=== PATIENT | female | born 1975 | race Caucasian/White ===

== ENCOUNTER → 2019-08-08 15:50 | Outpatient (BNVA) | payer OTHER, SELFPAY | PROVIDERS: PCP Nurse Practitioner Family; Visit Provider Podiatrist Foot & Ankle Surgery | DX: S92.422A Displaced fracture of distal phalanx of left great toe, initial encounter for closed fracture (principal); X58.XXXA Exposure to other specified factors, initial encounter | CPT/HCPCS: 73620; 73630 ==

== ENCOUNTER → 2019-08-23 13:27 | Outpatient (BNVA) | payer OTHER, SELFPAY | PROVIDERS: PCP Nurse Practitioner Family; Visit Provider Podiatrist Foot & Ankle Surgery | DX: S92.422A Displaced fracture of distal phalanx of left great toe, initial encounter for closed fracture (principal); X58.XXXA Exposure to other specified factors, initial encounter | CPT/HCPCS: 73630 ==

== ENCOUNTER → 2019-11-26 10:29 | Outpatient (BNVA) | payer OTHER, SELFPAY | PROVIDERS: PCP Nurse Practitioner Family; Referring Provider Podiatrist Foot & Ankle Surgery; Visit Provider Specialist | DX: M25.569 Pain in unspecified knee (principal) | CPT/HCPCS: 73560; 73565 ==

== ENCOUNTER 2019-12-24 15:06 | Outpatient (CLI) | payer OTHER, SELFPAY ==
--- NOTE | 2019-12-24 15:10 | MR_ITS ---
WS: [id number] MRI LEFT KNEE HISTORY: internal derangement left knee COMPARISON: 11/26/2019 Anterior cruciate ligament: Small amount of increased signal in the distal ACL but no full-thickness tear. Posterior cruciate ligament: Intact. Medial collateral ligament: Intact. Posterior lateral corner structures: Intact. Medial menisci: Intact. Normal signal, size and shape. Lateral meniscus: Intact. Normal signal, size and shape. Extensor mechanism: Distal quadriceps tendon and patellar tendons are intact. Fluid and soft tissue: No joint effusion. Lobulated cystic mass posterior to the medial femoral condy le measures 2.2 x 2.0 cm. There are a few septations but predominantly increased signal on the proton density and T2 sequences. 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 Alternative diagnosis is a brandin glion. This cyst is slightly more high riding been a typical Paredes's cyst. Osseous and articular structures: Patellofemoral compartment: Mild narrowing of patellofemoral joint space. Osteochondral defects invol ve both the medial and lateral patellar facet. There is loss of cartilage over the medial patellar fa cet. Increased signal extends between the cartilage in the cortex of the bone consistent with a delam inating lesion. Medial compartment: Mild narrowing of the medial compartment with fissuring of the cartilage. Lateral compartment: Mild narrowing of the lateral compartment with fissuring of the cartilage. MR/MR knee LT wo con* [id number] IMPRESSION: 1. Lobulated complex cystic mass is probably a small Paredes's cyst. Slightly mo re superior than typically seen for Paredes's cyst and ganglion should be conside red in the differential. 2. Bilateral patellar facet chondromalacia. Mild delamination involving the me dial patellar facet cartilage defect. 3. Mild narrowing medial and lateral compartments of each knee.
== END 2019-12-24 15:07 | disposition home or self-care (01) ==
LOC: RADWPI 15:09
PROVIDERS: PCP Nurse Practitioner Family; Visit Provider Specialist
DX: M23.92 Unspecified internal derangement of left knee (principal); M25.862 Other specified joint disorders, left knee; M22.42 Chondromalacia patellae, left knee
CPT/HCPCS: 73721

== ENCOUNTER 2020-11-08 20:00 | Emergency (ER) | payer BC, SELFPAY ==
[2020-11-08 20:08] VITALS: BP 162/98; PULSE 82; RESP 18; TEMP 35.9; O2SAT 100; BMI 27.3
--- NOTE | 2020-11-08 20:24 | XRR_ITS ---
PROCEDURE INFORMATION: Exam: XR Chest Exam date and time: 11/08/2020 8:26 PM Age: 45 years old Clinical indication: Shortness of breath; Additional info: Dyspnea TECHNIQUE: Imaging protocol: XR of the chest. Views: 1 view. COMPARISON: CR Chest 2 views* [id number] 11/26/2016 4:50 PM FINDINGS: Lungs: There are bilateral increased interstitial opacities present, findings suggesting a bilateral interstitial pneumonitis. Pleural spaces: Unremarkable. No pleural effusion. No pneumothorax. Heart/Mediastinum: Unremarkable. No cardiomegaly. Bones/joints: Unremarkable. XR/XR chest 1V portable [id number] IMPRESSION: There are increased interstitial markings present bilaterally, findings suggesting a bilateral interstitial pneumonitis. COVID-19 pneumonia can have this appearance.
--- NOTE | 2020-11-08 20:25 | ECG_ITS ---
[facility] Test Date: 2020-11-08 Pat Name: Jae Vasquez Department: Room: Gender: Female [employer]: : 1975 Requested By: Kenny Edouard Order Number: [id number] Gayatri MD: Aubrie Mendes M.D. Measurements Intervals [place] Rate: 85 P: 67 GA: 136 QRS: 63 QRSD: 90 T: 57 QT: 378 QTc: 450 Interpretive Statements SINUS RHYTHM LOW QRS VOLTAGE IN PRECORDIAL LEADS [QRS DEFLECTION < 1.0 mV IN CHEST LEADS] No previous ECG available for comparison Electronically Signed On 11-09-2020 10:28:39 CDT by Aubrie Mendes M.D. [id number] f
[2020-11-08] MEDS: sodium chloride 0.9% 1,000 ML 999 ML IV (20:56)
[2020-11-08] MEDS: diphenhydrAMINE 50 mg/mL SDV 1mL IVP (20:57)
[2020-11-08] MEDS: famotidine 20 mg/2 mL INJ 40 MG IVP (20:57)
[2020-11-08 21:22] LABS: Basophils # 0.1 10^3/uL (0.0-0.1); Basophils % 1.4 %; Eosinophils # 0.2 10^3/uL (0.0-0.8); Eosinophils % 3.2 %; Hematocrit 47.6 % (37.0-47.0); Hemoglobin 15.8 g/dL (11.5-15.3); Lymphocytes # 1.1 10^3/uL (0.8-4.8); Lymphocytes % 19.5 %; Mean Corpuscular HGB Conc 33.2 g/dL (30.0-36.0); Mean Corpuscular Hemoglobin 29.9 pg (28.0-34.0); Mean Corpuscular Volume 90.2 fL (81-99); Mean Platelet Volume 11.1 fL (7.4-10.4); Monocytes # 0.7 10^3/uL (0.2-0.9); Monocytes % 12.9 %; Neutrophils # 3.56 10^3/uL (1.8-7.7); Neutrophils % 62.6 %; Nucleated Red Blood Cells % 0 %; Platelet Count 273 10^3/cmm (130-400); Red Blood Count 5.28 10^6/uL (4.1-5.3); Red Cell Distribution Width 11.7 % (12.1-15.1); White Blood Count 5.7 10^3/uL (4.0-10.0)
[2020-11-08 21:28] LABS: HCG, Serum Qual Negative (Negative)
[2020-11-08 21:34] LABS: Alanine Aminotransferase 17 U/L (0-33); Albumin Level 4.6 g/dL (3.5-5.2); Alkaline Phosphatase 58 IU/L (35-105); Anion Gap 13.9 (5-19); Aspartate Amino Transferase 12 U/L (0-32); Blood Urea Nitrogen 10 mg/dL (6-20); Calcium 9.1 mg/dL (8.5-10.5); Carbon Dioxide 24 mmol/L (22-29); Chloride 107 mmol/L (98-107); Globulin 2.6 g/dL (1.3-4.6); Glomerular Filtration Rate 89.7 mL/min (90-130); Glucose 87 mg/dL (65-115); Osmolality Calculated 290 mOsm/kg (285-295); Potassium 3.9 mmol/L (3.5-5.1); Sodium 141 mmol/L (136-145); Total Bilirubin 0.2 mg/dL (0.15-1.2); Total Protein 7.2 g/dL (6.6-8.7)
--- NOTE | 2020-11-08 21:57 | ED_ITS ---
HPI - Allergic Reaction General: Chief complaint: Allergic Reaction Stated complaint: ALLERGIC REACTION:TONGUE SWELL,CHEST TIGHT,RASH Time Seen by Provider: 11/08/20 20:14 History of Present Illness: HPI narrative: The patient is a 45-year-old female who comes to the ER complaining of tongue swelling and allergic reaction as well as tightness in her left chest. She says 1 month ago she got a allergy test which made her have a severe allergic reaction and she has been taking Benadryl on and off ever since. Today her tongue began to swell as well she developed a rash on her chest and flushing in her face. She took 2, 25 mg Benadryl tablets, Zyrtec and Pepcid as well at home today with minimal improvement of her of her symptoms. She carries with her to EpiPen's but she is afraid to use them as she had a severe allergic reaction many years ago where she coded and the last thing she remembers is them giving her epinephrine. I discussed with her generally accepted standards of using epinephrine pens or if she is short of breath or has lip and tongue swelling or throat swelling that she may use this. MD complaint: allergic reaction Associated symptoms: Reports rash and tongue swelling; Deny abdominal pain or dizziness Severity: moderate Treatment prior to arrival: benadryl and bronchodilator Review of Systems General: Reports: 10 or more systems reviewed and unremarkable except in HPI and below Const: Denies: fatigue Eyes: Denies: change in vision, blurry vision or eye redness ENMT: Reports: swelling of lips/tongue (tongue only.); Denies: throat pain, ear or mastoid pain or nasal congestion Card: Denies: chest pain, palpitations, irregular heart rhythm, edema, dyspnea on exertion or orthopnea Resp: Denies: dyspnea, productive cough or non-productive cough GI: Denies: abdominal pain, diarrhea or GI cramping : Denies: flank pain, difficulty voiding, urinary frequency or urinary urgency Musc: Denies: neck pain, back pain, extremity pain, joint pain, joint redness, limited range of motion or muscle weakness Skin/Breast: Reports: rash and erythema; Denies: pruritus, skin pain or skin tenderness Neuro: Denies: headache(s), numbness in extremities, weakness in extremities, sensory changes, difficulty walking, dizziness, confusion or Slurred speech present Psych: Denies: anxiety or depression Endo: Denies: polyuria All/Imm: Reports: tongue swelling PFSH ED PFSH: Medical History (Updated 11/08/20 @ 21:57 by Kenny Edouard MD) Fracture of left great toe Surgical History History of delivery History of tonsillectomy Family History Grandfather Diabetes Grandmother Diabetes Other Cancer Social History Smoking and tobacco status: never smoked Alcohol intake: current Alcohol intake frequency: few times a week Household members: spouse and children Marital status: Current occupational status: employed Current occupation: [employer] Physical Exam Const: COMMON NORMALS: no acute distress, average body habitus, patient oriented x3, no limitations, healthy appearing, alert and well nourished GENERAL APPEARANCE: cooperative, comfortable, well kempt and well developed ORIENTATION/CONSCIOUSNESS: Yes awake, Yes oriented to person, Yes oriented to place and Yes oriented to time HENMT: COMMON NORMALS: normocephalic, external ears normal and Normal external nose present HEAD & SCALP: normal to inspection and normocephalic NOSE: Normal external nose present EXTERNAL EAR: Yes external ears normal MOUTH: Normal oral and palatal mucosa present TEETH & GINGIVA: Yes other (mild tongue swelling) THROAT: posterior oropharynx normal Eye: COMMON NORMALS: Equal, round and reactive pupils present and EOMs intact bilaterally GENERAL EYE: appearance normal, both eyes and all related structures PUPIL: Yes Equal, round and reactive pupils present Neck/C-Spine: COMMON NORMALS: full ROM, no lymphadenopathy, no meningeal signs and no JVD GENERAL: Yes normal visual inspection Lymph: LYMPHATIC: no lymphadenopathy noted Chest: COMMONS NORMALS: normal inspection of the chest and normal palpation of entire chest wall Resp: COMMON NORMALS: normal respiratory effort, No retractions, No use of accessory muscles, clear to auscultation bilaterally and percussion normal EFFORT & INSPECTION: Yes able to speak in complete sentences AUSCULTATION: clear to auscultation bilaterally PERCUSSION: percussion normal Cardio: COMMON NORMALS: no JVD, regular rate, regular rhythm, S1 normal heart sound present, S2 normal heart sound present and Peripheral pulses 2+ throughout RATE: regular rate RHYTHM: regular rhythm HEART SOUNDS: S1 normal heart sound present and S2 normal heart sound present PERIPHERAL PULSES: Peripheral pulses 2+ throughout GI: COMMON NORMALS: Normal to inspection, nondistended, normoactive bowel sounds present, Soft to palpation, non-tender and no masses INSPECTION: Yes normal to inspection PALPATION: Yes Soft to palpation : COMMON NORMALS: Yes no CVA tenderness BLADDER/KIDNEY EXAM: Yes no CVA tenderness Back/Pelvis: COMMON NORMALS: no CVA tenderness, thoracic and lumbar spine normal to inspection, no thoracic nor lumbar tenderness and thoraco-lumbar ROM normal Extremity: COMMON NORMALS: normal to inspection, full ROM, capillary refill normal, no joint enlargement and no pedal edema GENERAL: Yes normal exam except as noted Neuro: COMMON NORMALS: patient oriented x3, CN's II-XII intact bilaterally, moves all extremities, no focal motor deficits, no sensory deficits noted and gait normal SENSORIUM/ORIENTATION: Yes alert, Yes oriented to person, Yes oriented to place and Yes oriented to time MENINGEAL SIGNS: Yes no meningeal signs Psych: COMMON NORMALS: mental status grossly normal, Normal thought process present, cooperative, normal affect and speech normal APPEARANCE: Yes well kempt ATTITUDE: Yes calm SPEECH: Yes normal speech THOUGHT PROCESS: Normal thought process present Skin: NARRATIVE SKIN EXAM: Rash on chest and face typical of allergic reaction. Course Vital Signs: Vital signs: Vital Signs Temperature 96.6 F L 11/08/20 20:08 Pulse Rate 82 11/08/20 20:08 Respiratory Rate 18 11/08/20 20:08 Blood Pressure 162/98 11/08/20 20:08 Pulse Oximetry 100 11/08/20 20:08 MDM - Allergic Reaction MDM Narrative: Medical decision making narrative: The patient came in with symptoms of an allergic reaction to unknown trigger. A month ago she had an allergy test and has been having allergic symptoms since. She took Benadryl Zyrtec and famotidine at home with mild improvement but her tongue began to swell and she came to the ER. She was given Benadryl IV, famotidine, IV fluids, Solu-Medrol. She had quick improvement and resolution of her symptoms completely. She is safe for discharge home. Recommended returning to the ER with any worsening symptoms and keep her EpiPen's handy if she has any shortness of breath related to throat, tongue, or lip swelling she should immediately use them and call 911. Visit primary care Tuesday to discuss monitor improvement of her symptoms. Return to the ER with worsening symptoms at any time. Lab Data: Labs: Lab Results 11/08/20 11/08/20 11/08/20 Range/Units 20:54 20:54 20:54 WBC 5.7 (4.0-10.0) 10^3/ uL RBC 5.28 (4.1-5.3) 10^6/u L Hgb 15.8 H (11.5-15.3) g/dL Hct 47.6 H (37.0-47.0) % MCV 90.2 (81-99) fL MCH 29.9 (28.0-34.0) pg MCHC 33.2 (30.0-36.0) g/dL RDW 11.7 L (12.1-15.1) % Plt Count 273 (130-400) 10^3/c mm MPV 11.1 H (7.4-10.4) fL Neut % (Auto) 62.6 % Lymph % (Auto) 19.5 % [place] % (Auto) 12.9 % Eos % (Auto) 3.2 % Baso % (Auto) 1.4 % Neut # (Auto) 3.56 (1.8-7.7) 10^3/u L Lymph # (Auto) 1.1 (0.8-4.8) 10^3/u L [place] # (Auto) 0.7 (0.2-0.9) 10^3/u L Eos # (Auto) 0.2 (0.0-0.8) 10^3/u L Baso # (Auto) 0.1 (0.0-0.1) 10^3/u L Nucleated RBC % (a uto) 0 % Nucleated RBCs # 0.0 /100WBC Sodium 141 (136-145) mmol/L Potassium 3.9 (3.5-5.1) mmol/L Chloride 107 (98-107) mmol/L Carbon Dioxide 24 (22-29) mmol/L Anion Gap 13.9 (5-19) BUN 10 (6-20) mg/dL Creatinine 0.7 (0.5-0.9) mg/dL GFR Calculation 89.7 L (90-130) mL/min Glucose 87 (65-115) mg/dL Calculated Osmolal ity 290 (285-295) mOsm/k g Calcium 9.1 (8.5-10.5) mg/dL Total Bilirubin 0.2 (0.15-1.2) mg/dL AST 12 (0-32) U/L ALT 17 (0-33) U/L Alkaline Phosphata se 58 (35-105) IU/L Total Protein 7.2 (6.6-8.7) g/dL Albumin 4.6 (3.5-5.2) g/dL Globulin 2.6 (1.3-4.6) g/dL HCG, Qual Negative (Negative) Discharge Plan Discharge Patient Disposition: Home Clinical Impression: Allergic reaction Condition: Stable Prescriptions: New Medrol (Gualberto) 4 mg tablets,dose pack See Rx Instructions .ROUTE .COMPLEX Qty: 21 RF: 0 Benadryl 25 mg capsule 25 mg PO Q4H PRN (Reason: allergic reaction) Qty: 30 RF: 0 No Action fluticasone propionate 50 mcg/actuation spray,suspension 1 spray INTRANASAL BID RF: 0 loratadine [Claritin] 10 mg tablet 10 mg PO QDAY RF: 0 Discharge Orders: Discharge ED (Routine); Ordered 11/08/20 Ordered By: Kenny Edouard Referrals: Alicja Patterson FNP [Primary Care Provider] - Discharge Diet: Advance as tolerated Discharge Activity: Resume usual activity Patient Instructions: Allergic Reaction, Opioid Safety Activity Restrictions/Additional Instructions: You have had an allergic reaction to an unknown allergen. Please take Benadryl every 4 hours as needed to help with your allergy symptoms and fill the steroid pack in the morning and take it as directed. You may also take the other m edications you have as you have been taking them. Use the EpiPen if you have any shortness of breath as lip and tongue and throat swelling can be severe and even deadly. Come to the hospital with any worsening symptoms. Follow-up with your primary care physician Tuesday to discuss further. 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
[2020-11-08 22:03] VITALS: BP 151/94; PULSE 67; RESP 16; O2SAT 99
== END 2020-11-08 22:05 | disposition home or self-care (01) ==
PROVIDERS: Emergency Provider Family Medicine; PCP Nurse Practitioner Family
DX: T78.40XA Allergy, unspecified, initial encounter (principal)
CPT/HCPCS: 71045; 80053; 84703; 85025; 93005; 96361; 96374; 96375; 99284; J1200; J2930; J3490; J7030

== ENCOUNTER 2022-02-04 14:53 | Outpatient (CLI) | payer BC, SELFPAY ==
--- NOTE | 2022-02-04 14:56 | MM_ITS ---
WS: [id number] BILATERAL 3D TOMOSYNTHESIS DIGITAL SCREENING MAMMOGRAPHY WITH CAD CLINICAL INFORMATION: SCREENING HISTORY: Screening mammogram. No current complaints. COMPARISON: TECHNIQUE: Bilateral CC and MLO views. FINDINGS: Scattered fibroglandular densities bilaterally. Slightly spiculated focal asymmetric density upper ou ter RIGHT breast is new from previous. Recommend further evaluation with ultrasound. LEFT breast is unremarkable. MM/[place] [id number] IMPRESSION: BI-RADS: 0-Incomplete: Need additional imaging evaluation FOLLOW UP: Need Additional Imaging Recommend RIGHT breast ultrasound directed to the upper outer RIGHT breast.
== END 2022-02-04 14:54 | disposition home or self-care (01) ==
PROVIDERS: PCP Nurse Practitioner Family; Visit Provider Nurse Practitioner Family
DX: Z12.31 Encounter for screening mammogram for malignant neoplasm of breast (principal)
CPT/HCPCS: 77063; 77067

== ENCOUNTER 2022-02-24 07:44 | Outpatient (CLI) | payer BC, SELFPAY ==
--- NOTE | 2022-02-24 07:58 | US_ITS ---
WS: [id number] ULTRASOUND BREAST RIGHT TECHNIQUE: Ultrasound right breast focused area of concern. CLINICAL INFORMATION: ABNORMAL MAMMO (US ONLY) COMPARISON: Mammogram February 04, 2022 FINDINGS: Ultrasound RIGHT breast at the 9 to 12:00 position. Normal underlying parenchymal tissue. Ovoid echog enic density likely represents lipoma or fibroadenolipoma measuring 1.5 x 0.7 x 1.6 CM. This is proba aicha benign and recommend 6 month follow-up to confirm stability. No other suspicious findings. US/US breast RT limited* [id number] IMPRESSION: Recommend 6 month follow-up RIGHT breast ultrasound 2 confirm stabi lity of the above-described ovoid echogenic nodule BI-RADS 3 probably benign FOLLOW UP: 6 month
== END 2022-02-24 07:45 | disposition home or self-care (01) ==
LOC: RAD 07:45
PROVIDERS: PCP Nurse Practitioner Family; Visit Provider Nurse Practitioner Family
DX: R92.8 Other abnormal and inconclusive findings on diagnostic imaging of breast (principal)
CPT/HCPCS: 76642

== ENCOUNTER 2022-08-27 13:11 | Outpatient (CLI) | payer BC, SELFPAY ==
--- NOTE | 2022-08-27 | US_ITS ---
WS: [id number] ULTRASOUND RIGHT BREAST HISTORY: ABNORMAL MAMMO, 6 MONTH FOLLOW UP COMPARISON: 02/24/2022 TECHNIQUE: 2-D and Doppler. Ultrasound is directed along the 9-10 o'clock axis of the RIGHT breast as suggested on the prior stud y. No suspicious masses identified. Normal appearance of the breast lobules. Previously described are a of concern is no longer present. US/US breast RT limited* [id number] IMPRESSION: BI-RADS: 2-Benign FOLLOW-UP: 6 Month Follow-up Patient to return to annual screening mammography. Screening mammogram should b e in January 2023.
== END 2022-08-27 13:12 | disposition home or self-care (01) ==
PROVIDERS: PCP Nurse Practitioner Family; Visit Provider Nurse Practitioner Family
DX: R92.8 Other abnormal and inconclusive findings on diagnostic imaging of breast (principal)
CPT/HCPCS: 76642

== ENCOUNTER → 2023-01-28 15:08 | Outpatient (BNVA) | payer BC, SELFPAY | PROVIDERS: PCP Nurse Practitioner Family; Visit Provider Psychiatry & Neurology Psychiatry | DX: F41.1 Generalized anxiety disorder (principal); F50.2 Bulimia nervosa; F33.1 Major depressive disorder, recurrent, moderate; F43.12 Post-traumatic stress disorder, chronic; Z79.899 Other long term (current) drug therapy | CPT/HCPCS: 80061; 83036 ==

== ENCOUNTER → 2024-10-19 15:24 | Outpatient (BNVA) | payer BC, SELFPAY ==
[2024-08-13 16:57] VITALS: BP 129/87; BMI 31.0
== END ==
PROVIDERS: PCP Nurse Practitioner Family; Visit Provider Psychiatry & Neurology Psychiatry
DX: F33.1 Major depressive disorder, recurrent, moderate (principal); F43.12 Post-traumatic stress disorder, chronic
CPT/HCPCS: 80061; 83036